=== PATIENT | female | born 1935 | race Caucasian/White ===

== ENCOUNTER 2017-02-26 21:20 | Emergency (ER) | payer OTHER ==
[2017-02-26] MEDS ORDERED: ALBUTEROL SULFATE 2.5 MG/3 ML AMPUL.NEB NEB ONE (21:21)
[2017-02-26 22:01] LABS: MEAN CORPUSCULAR HEMOGLOBIN 33.5 pg (28.0-34.0); MEAN CORPUSCULAR VOLUME 100.7 fl (80.0-100.0)
[2017-02-26] MEDS ORDERED: IPRATROPIUM/ALBUTEROL SULFATE 3 ML AMPUL.NEB NEB ONE ×2 (22:02→22:03)
[2017-02-26 22:16] LABS: eGFR (African) > 60; eGFR (Non-African) > 60
--- NOTE | 2017-02-26 22:25 | Diagnostic Imaging Report ---
ARIADNA LAI [facility] [address] [facility] [address] [place], [place]. [address] Report Submission Date: Feb 26, 2017 10:07:34 PM CDT Patient Study Name: KARLIE HECTOR Date: Feb 26, 2017 9:47:00 PM CDT Modality Type: CR Gender: F Description: CHEST : 39 Institution: [facility] Physician: ARIADNA LAI Chest PA and lateral views Clinical history: Cough and dyspnea for 3 days Pulmonary emphysema is noted with hyperinflation of both lung fleming. Left lower lung infiltrates linear in appearance. Clear right lung. 1 cm nodule the right upper lobe require further evaluation by CT scan of the chest. No effusions . Normal heart shadow and mediastinum Impression: Pulmonary emphysema with small linear infiltrates in the left lung base 1 cm nodule right upper lung require followup examination and possibly CT scan of the chest Electronically signed on Feb 26, 2017 10:07:34 PM CDT by: Yinka FRANCISCO
[2017-02-26] MEDS ORDERED: ASPIRIN 325 MG TABLET PO ONE (23:05)
[2017-02-26] MEDS ORDERED: ASPIRIN 81 MG CHEW TAB ONE (23:06)
[2017-02-26] MEDS ORDERED: cefTRIAXone SODIUM 1 GM VIAL ONE (23:06)
[2017-02-26] MEDS ORDERED: 0.9 % SODIUM CHLORIDE 100 ML IV ONE (23:06)
--- NOTE | 2017-02-26 23:23 | ED Physician Documentation ---
Dyspnea - HISTORIAN Historian: patient, friend - HPI Chief Complaint: Dyspnea Additional Information: uri symptome past 3-4 days then today sig worse w/tachycardia sob cough prod pastrana sputum Onset: days ago Duration: continues in ED, worse Initiating Event: upper respiratory illness. denies: out of meds (new meds from pcp. pt thinks the m,eds made hjer worse) Severity: moderate Exacerbated By: exertion Associated Symptoms: chills, chest discomfort, productive cough, heart racing Further Comments: no - ROS CONST: weakness, other (sob anxious) GI/: none NEURO/PSYCH: denies: headache MS/SKIN/LYMPH: none - PAST HX Lung Disease: COPD PE Risk Factors: hypertension Surgeries/Procedures: hysterectomy Allergies/Adverse Reactions: Allergies Allergy/AdvReac Type Severity Reaction Status Date / Time No Known Allergies Allergy Verified 02/26/17 22:26 Home Medications: Ambulatory Orders Medication Instructions Recorded Calcium Carbonate/Vitamin D3 1 each PO BID u2 12/06/14 [Calcium 500 + Vit D 400 Tablet] Cholecalciferol (Vitamin D3) 5,000 unit PO DAILY av 12/06/14 [Vitamin D3] Benzonatate [Tessalon Perles] 100 mg PO D 02/26/17 - SOCIAL HX Smoking History: non-smoker (x6 weeks) Alcohol Use: none Drug Use: none - FAMILY HX Family History: no significant history ED Results Lab/Radiology - Radiology Radiology Impressions: cxr= adv copd plus nodule rt upper lobe - Orders Orders: ED Orders Category Date Time Status Assess pulse oximetry Q1H Care 02/26/17 21:21 Active CHEST P.A.&LAT 2 VIEWS [RAD] Stat Exams 02/26/17 Ordered ARTERIAL BLOOD GAS Stat Lab 02/26/17 Uncollected CBC/PLATELET/DIFF Routine Lab 02/26/17 21:40 Received CMP Routine Lab 02/26/17 21:40 Received PT-INR Routine Lab 02/26/17 21:40 Received TROPONIN I (cTnI) Stat Lab 02/26/17 21:40 Received Albuterol Sulfate [Ventolin] Med 02/26/17 21:21 Discontinued 2.5 mg NEB NOW ONE Ipratropium/Albuterol Sulfate [Duoneb] Med 02/26/17 22:02 Discontinued 3 ml NEB .STK-MED ONE Ipratropium/Albuterol Sulfate [Duoneb] Med 02/26/17 22:03 Once 3 ml NEB NOW ONE Oxygen Daily Oxygen 02/26/17 21:30 Ordered EKG WITH COMPARISON Stat Ther 02/26/17 Ordered Dyspnea Physical Exam - EXAM General Appearance: moderate distress EENT: eye inspection normal Neck: nml inspection Respiratory: wheezes, rales, rhonchi. No: breath sounds nml CVS: tachycardia (130). No: reg. rate & rhythm Abdomen: non-tender Skin: color nml, no rash, decubitus. No: cyanosis, diaphoresis, pallor, ecchymosis Extremities: non-tender Neuro/Psych: oriented x3, motor nml, sensation nml. No: mood/affect nml ( anxious) Discharge Clincal Impression: ac exab copd, poss acute cardiac event, hypoxemia Referrals: Adriana Saldivar FNP [Primary Care Provider] - 2 Days Home Medications: Ambulatory Orders Calcium Carbonate/Vitamin D3 [Calcium 500 + Vit D 400 Tablet] 1 each PO BID u2 12/06/14 Cholecalciferol (Vitamin D3) [Vitamin D3] 5,000 unit PO DAILY av 12/06/14 Benzonatate [Tessalon Perles] 100 mg PO D 02/26/17 Comments: tnsf [facility] Condition: Good Disposition: 02 XFER SHT-TRM HOSP Decision to Admit: [id number] Decision Time: 23:22
[2017-02-27 00:57] VITALS: BP 132/75
[2017-02-27 07:46] LABS: ABG BASE EXCESS 2.6 (-2 - +2); ABG PH 7.47 (7.35-7.45)
[2017-02-27 09:24] LABS: MONOCYTES % 5 % (0-11); SEGMENTED NEUTROPHILS % 80 % (39-79)
== END 2017-02-27 00:35 | disposition short-term general hospital (02) ==
LOC: ED 21:20
DX: J44.1 Chronic obstructive pulmonary disease with (acute) exacerbation (principal); R09.02 Hypoxemia
CPT/HCPCS: 36600; 71020; 80053; 82803; 84484; 85025; 85610; A9270; J0696; 96374; 99284; S1016

== ENCOUNTER 2017-03-08 08:16 | Outpatient (CLI) | payer OTHER ==
--- NOTE | 2017-03-08 14:11 | Diagnostic Imaging Report ---
CHARLES MOORE [facility] [address] [facility] [address] Report Submission Date: Mar 08, 2017 9:30:04 AM CDT Patient Study Name: KARLIE HECTOR Date: Mar 08, 2017 8:37:16 AM CDT Modality Type: US Gender: F Description: UNILAT LTD STDY EXT VEINS : 39 Institution: [facility] Physician: CHARLES MOORE Duplex imaging right lower extremity CLINICAL HISTORY: Proximal calf pain for 5 days. TECHNIQUE: Real-time sonography of the right lower extremity is performed in transverse and longitudinal views. Doppler interrogation and color flow imaging are additionally used. FINDINGS: There are normal Doppler waveforms from the interrogated vessels with normal respiratory fluctuation and augmentation. There is no echogenic thrombus identified within the vessel lumen. The veins compress normally. Popliteal cyst is demonstrated measuring 3.1 x 1.3 x 0.7 cm in size. IMPRESSION: Popliteal cyst. No evidence of deep venous thrombosis. Electronically signed on Mar 08, 2017 9:30:04 AM CDT by: Baldev FRANCISCO
== END 2017-03-08 09:35 ==
LOC: RAD 08:16
PROVIDERS: ATTEND Family Medicine
DX: M79.604 Pain in right leg (principal)
CPT/HCPCS: 93971

== ENCOUNTER 2017-07-16 08:21 | Outpatient (CLI) | payer OTHER ==
[2017-07-16 09:06] LABS: eGFR (African) > 60; eGFR (Non-African) > 60
== END 2017-07-16 08:30 ==
LOC: RAD 08:21
PROVIDERS: ATTEND Family Medicine
DX: I10 Essential (primary) hypertension (principal); M81.0 Age-related osteoporosis without current pathological fracture
CPT/HCPCS: 36415; 77080; 80053; 80061

== ENCOUNTER 2018-05-29 07:39 | Outpatient (CLI) | payer OTHER ==
[2018-05-29 08:56] LABS: eGFR (Non-African) > 60
--- NOTE | 2018-05-29 17:52 | Diagnostic Imaging Report ---
CHARLES MOORE [facility] [address] [facility] [address] [address] Report Submission Date: May 29, 2018 8:19:26 AM CDT Patient Study Name: KARLIE HECTOR I Date: May 29, 2018 7:55:18 AM CDT Modality Type: DX Gender: F Description: LOWER EXTREMITY : 39 Institution: [facility] Physician: CHARLES MOORE Examination: Plain film right foot History: RT FOOT, PAIN IN RT FOREFOOT X2-3 YEARS, WORSENING, NO KNOWN INJURY (Hx) Findings: 3 views of the right foot demonstrates osteopenia. Articular degenerative changes. No fracture or dislocation. No soft tissue swelling. No joint effusion. Impression: Osteopenia and degenerative changes. No acute cortical abnormality. Electronically signed on May 29, 2018 8:19:26 AM CDT by: Bladimir FRANCISCO
== END 2018-05-29 07:40 ==
LOC: LAB 07:39
PROVIDERS: ATTEND Family Medicine
DX: I10 Essential (primary) hypertension (principal); M79.671 Pain in right foot
CPT/HCPCS: 36415; 73630; 80053; 80061

== ENCOUNTER 2018-11-15 15:37 | Emergency (ER) | payer OTHER ==
--- NOTE | 2018-11-15 16:07 | ED Physician Documentation ---
General Adult - HISTORIAN Historian: patient - HPI Stated Complaint: fall at work yesterday Chief Complaint: Fall Onset: days ago (1) Timing: still present Severity: mild Further Comments: yes (She states she fell over a piece of snow that had melted and then went to ice she thinks because she has been walking that path for weeks. She states she fell on her buttocks and hit her elbow Denies any head injury. she has no complaint of LOC. She is walking fine. She has some pain in her right buttock/hip and elbow but is able to bear weight. She denies any loss of control of bowel or bladder. She has not tried any OTC meds for pain.) Last known Well Code/Unknown Code: Unknown - ROS CONST: no problems - PAST HX Past History: none Immunizations: UTD Allergies/Adverse Reactions: Allergies Allergy/AdvReac Type Severity Reaction Status Date / Time No Known Allergies Allergy Unverified 02/26/17 22:26 benzonatate AdvReac Mild Shortness Unverified 08/14/17 13:39 of Breath Home Medications: Ambulatory Orders Medication Instructions Recorded Calcium Carbonate/Vitamin D3 1 each PO BID u2 12/06/14 [Calcium 500 + Vit D 400 Tablet] Cholecalciferol (Vitamin D3) 5,000 unit PO DAILY av 12/06/14 [Vitamin D3] Benzonatate [Tessalon Perles] 100 mg PO D 02/26/17 Furosemide 20 mg PO DAILY PRN u2 03/05/17 - SOCIAL HX Smoking History: non-smoker Alcohol Use: none Drug Use: none - FAMILY HX Family History: No - VITAL SIGNS Vital Signs: Vital Signs Temp Pulse Resp BP Pulse Ox 132/75 02/27/17 00:53 - REVIEWED ASSESSMENTS Nursing Assessment Reviewed: Yes Vitals Reviewed: Yes Progress - Progress Progress: 1655: discussed results and plan . She is agreeable DG ED Results Lab/Radiology - Radiology Radiology Impressions: 2 views right elbow Clinical history: Right elbow pain Findings: There is no acute fracture dislocation. Alignment is normal. The joint spaces are maintained. Impression: Negative Electronically signed on Nov 15, 2018 4:47:06 PM CAN STRIPER by: Aquiles Beck Single view pelvis Clinical history: Fall Findings: No acute fracture dislocation is identified. Alignment is normal. Impression: negative Electronically signed on Nov 15, 2018 4:47:47 PM CAN STRIPER by: Aquiles Bcek 2 views right hip Clinical history: Right hip pain Findings: No acute fracture dislocations identified. The alignment is normal. Benign- appearing sclerosis is seen in the proximal femur. Impression: Negative Electronically signed on Nov 15, 2018 4:48:26 PM CAN STRIPER by: Aquiles Beck 3 views lumbar spine Clinical history: Back pain. Findings: There is minimal age listhesis of L5 on S1. Otherwise, the alignment is normal. The vertebral body height are maintained. Disc space are maintained. Impression: Negative Electronically signed on Nov 15, 2018 4:49:51 PM CAN STRIPER by: Aquiles Beck General Adult Physical Exam - PHYSICAL EXAM GENERAL APPEARANCE: no distress EENT: eye inspection normal, no signs of dehydration, DUY NECK: normal inspection RESPIRATORY: no resp distress, chest non-tender, breath sounds normal CVS: reg rate & rhythm, heart sounds normal, equal pulses, no murmur ABDOMEN: soft, normal bowel sounds, no distension BACK: normal inspection, other (pain to palpation right buttock FROM with hip and lower back ) SKIN: warm/dry, other (bruise on right elbow. FROM + Pulses + and pain to palpation ) EXTREMITIES: non-tender, normal range of motion, no evidence of injury, no edema NEURO: oriented X3 Discharge Clincal Impression: Fall Qualifiers: Encounter type: initial encounter Qualified Code(s): W19.XXXA - Unspecified fall, initial encounter Comments: 1.Continue OTC meds as directed for pain 2. Follow up with PCP in 2-4 days 3. Return to ER for any concerns Condition: Stable Disposition: 01 HOME, SELF-CARE Decision to Admit: NO (t) Date of Decison to Admit: 11/15/18 Decision Time: 16:56
--- NOTE | 2018-11-15 16:48 | Diagnostic Imaging Report ---
BHUMIKA PAZ [facility] [address] [facility] [address] [address] Report Submission Date: Nov 15, 2018 4:47:47 PM CREDIT ANALYST Patient Study Name: KARLIE HECTOR I Date: Nov 15, 2018 4:18:46 PM CREDIT ANALYST Modality Type: DX Gender: F Description: PELVIS AP 1 OR 2 VIEWS : 39 Institution: [facility] Physician: BHUMIKA PAZ Single view pelvis Clinical history: Fall Findings: No acute fracture dislocation is identified. Alignment is normal. Impression: negative Electronically signed on Nov 15, 2018 4:47:47 PM CREDIT ANALYST by: Aquiles FRANCISCO
--- NOTE | 2018-11-15 16:48 | Diagnostic Imaging Report ---
BHUMIKA PAZ [facility] [address] [facility] [address] [address] Report Submission Date: Nov 15, 2018 4:47:06 PM GEOSPATIAL DEVELOPER Patient Study Name: KARLIE HECTOR I Date: Nov 15, 2018 4:18:46 PM GEOSPATIAL DEVELOPER Modality Type: DX Gender: F Description: ELBOW 2 VIEWS : 39 Institution: [facility] Physician: BHUMIKA PAZ 2 views right elbow Clinical history: Right elbow pain Findings: There is no acute fracture dislocation. Alignment is normal. The joint spaces are maintained. Impression: Negative Electronically signed on Nov 15, 2018 4:47:06 PM GEOSPATIAL DEVELOPER by: Aquiles FRANCISCO
--- NOTE | 2018-11-15 16:49 | Diagnostic Imaging Report ---
BHUMIKA PAZ [facility] [address] [facility] [address] [place], [place]. [address] Report Submission Date: Nov 15, 2018 4:48:26 PM RN DELIVERY Patient Study Name: KARLIE HECTOR I Date: Nov 15, 2018 4:18:46 PM RN DELIVERY Modality Type: DX Gender: F Description: RT HIP 2VIEW COMPLETE : 39 Institution: [facility] Physician: BHUMIKA PAZ 2 views right hip Clinical history: Right hip pain Findings: No acute fracture dislocations identified. The alignment is normal. Benign- appearing sclerosis is seen in the proximal femur. Impression: Negative Electronically signed on Nov 15, 2018 4:48:26 PM RN DELIVERY by: Aquiles FRANCISCO
--- NOTE | 2018-11-15 16:51 | Diagnostic Imaging Report ---
BHUMIKA PAZ [facility] [address] [facility] [address] [address] Report Submission Date: Nov 15, 2018 4:49:51 PM SPORTS CENTRE MANAGER Patient Study Name: KARLIE HECTOR I Date: Nov 15, 2018 4:18:46 PM SPORTS CENTRE MANAGER Modality Type: DX Gender: F Description: L SPINE 2 OR 3 VIEWS : 39 Institution: [facility] Physician: BHUMIKA PAZ 3 views lumbar spine Clinical history: Back pain. Findings: There is minimal age listhesis of L5 on S1. Otherwise, the alignment is normal. The vertebral body height are maintained. Disc space are maintained. Impression: Negative Electronically signed on Nov 15, 2018 4:49:51 PM SPORTS CENTRE MANAGER by: Aquiles FRANCISCO
[2018-11-15 17:27] VITALS: BP 144/62
== END 2018-11-15 17:15 | disposition home or self-care (01) ==
LOC: ED 15:37
DX: M25.551 Pain in right hip (principal); M25.521 Pain in right elbow; W00.9XXA Unspecified fall due to ice and snow, initial encounter; Y93.01 Activity, walking, marching and hiking; Y92.89 Other specified places as the place of occurrence of the external cause; Y99.0 Civilian activity done for income or pay
CPT/HCPCS: 72100; 72170; 73070; 73502; 99283; 99285

== ENCOUNTER 2019-05-21 07:47 | Outpatient (CLI) | payer OTHER ==
[2019-05-21 08:40] LABS: HDL 56 mg/dL (>40); eGFR (Non-African) > 60
== END 2019-05-21 07:50 ==
LOC: LAB 07:47
PROVIDERS: ATTEND Family Medicine
DX: I10 Essential (primary) hypertension (principal)
CPT/HCPCS: 36415; 80053; 80061

== ENCOUNTER 2019-10-01 10:09 | Outpatient (CLI) | payer MEDICARE ==
--- NOTE | 2019-10-01 20:52 | Diagnostic Imaging Report ---
PATIENT MR#: [id number] PATIENT PATIENT NAME: KARLIE HECTOR I DATE OF : 1935 REFERRING PHYSICIAN: Yinka Daugherty EXAM DATE: 10/01/2019 ACCESSION NUMBER: [id number] EXAM DESCRIPTION: DEXA DUAL ENERGY X-RAY ABSORPTIOMETRY (DXA) A DXA scan was performed on October 01, 2019 using a LikeAndy densitometer. IMPRESSION: Based on BMD diagnosis is consistent with osteoporosis (based on WHO criteria). Fracture risk is high . Continued pharmacological treatment is recommended. Follow-up DEXA exam recommended September 2020. INDICATION: OSTEOPOROSIS Technical Quality: Diagnostic RESULTS: Lumbar Spine The BMD measured in the L1-L4 region is 0.819 g/cm2, T-score -3.0 Total Hip The BMD measured at the left total proximal femur is 0.595 g/cm2, T-score -3.3 Interval Change: Today's examination is compared to the technically similar prior study from July 16, 2017. In the interim, there has been significant increase of 0.045 g/cm2, +5.8% at the lumbar spine, and 0.020, +3.5% at the total le ft femur. Read by: Dr. Tacos Hood Transcribed by: Tacos Hood Transcribed Date: 10/01/2019 8:52:12 PM Electronically signed by: Dr. Tacos Hood Date signed: 10/01/2019 8:52:12 PM
== END 2019-10-01 10:19 ==
LOC: RAD 10:09
PROVIDERS: ATTEND Family Medicine
DX: M81.0 Age-related osteoporosis without current pathological fracture (principal)
CPT/HCPCS: 77080